=== PATIENT | female | born 1975 | race Caucasian/White ===

== ENCOUNTER 2018-06-01 19:54 | Emergency (ER) | payer MEDICAID ==
[~2018-06-01] VITALS: Ht 162.6 cm; Wt 57.6 kg
[~2018-06-01 19:54] MED LIST: AMOXICILLIN500 M1 OR; ANTIVERT25 MG OR; BACTRIM DS1 TAB OR; BUSPAR5 MG PO; CELEXA20 MG PO; CELEXA40 MG PO; CEPHALEXIN500 MG OR; CIPROFLOXACN500 MG PO; COMBIVENT IN; FLEXERIL OR; FLEXERIL10 MG PO; LORTAB 5 OR; LORTAB 7.5 OR; MEDDOSEPAK OR; MEGACE40 MG OR; NAPROSYN500 MG OR; NAPROSYN500 MG PO; PENICILLN VK500 MG OR; PERCOCET 5/325M1 TAB OR; REGLAN10 MG OR; SEROQUEL25 MG OR; SEROQUEL50 MG OR; TRAMADOL HCL50 MG OR; TRAZODONE100 MG OR; TRAZODONE50 MG PO; ULTRAM50 MG OR
[2018-06-01] MEDS ORDERED: TRAZODONE50 MG PO (20:16)
[2018-06-01] MEDS ORDERED: CELEXA40 M1 PO (20:16)
[2018-06-01] MEDS ORDERED: BUSPAR5 MG PO (20:16)
[2018-06-01 20:45] VITALS: BP 126/79
[2018-06-01] MEDS ORDERED: AMOXICILLIN875 MG PO (21:30)
[2018-06-01] MEDS ORDERED: BENADRYL 50MG C50 MG PO (21:30)
== END 2018-06-01 22:15 | disposition home or self-care (01) ==
LOC: ED 19:54
DX: S71.151A Open bite, right thigh, initial encounter (principal); L03.115 Cellulitis of right lower limb; T78.40XA Allergy, unspecified, initial encounter; J45.909 Unspecified asthma, uncomplicated; F41.9 Anxiety disorder, unspecified; F17.210 Nicotine dependence, cigarettes, uncomplicated; W54.0XXA Bitten by dog, initial encounter; Y93.55 Activity, bike riding; Y92.410 Unspecified street and highway as the place of occurrence of the external cause

== ENCOUNTER 2018-06-26 21:24 | Emergency (ER) | payer MEDICAID ==
[~2018-06-26] VITALS: Ht 158.8 cm; Wt 56.6 kg
[~2018-06-26 21:24] MED LIST changes: +AMOXICILLIN875 MG PO; +BENADRYL 50MG C50 MG PO; +CELEXA40 M1 PO
[2018-06-26] MEDS ORDERED: AUGMENTIN875TAB PO (22:16)
[2018-06-26 22:55] VITALS: BP 108/88
== END 2018-06-26 22:55 | disposition home or self-care (01) ==
LOC: ED 21:24
DX: S71.152A Open bite, left thigh, initial encounter (principal); J45.909 Unspecified asthma, uncomplicated; F41.9 Anxiety disorder, unspecified; F17.210 Nicotine dependence, cigarettes, uncomplicated; L08.9 Local infection of the skin and subcutaneous tissue, unspecified; W54.0XXA Bitten by dog, initial encounter; Y92.410 Unspecified street and highway as the place of occurrence of the external cause

== ENCOUNTER 2019-07-21 09:50 | Emergency (ER) | payer MEDICAID ==
[~2019-07-21] VITALS: Ht 158.8 cm; Wt 62.0 kg
[~2019-07-21 09:50] MED LIST changes: +AUGMENTIN875TAB PO
[2019-07-21] MEDS ORDERED: HYDROCO/APAP1 TA9 PO (11:56)
[2019-07-21] MEDS ORDERED: MOTRIN400 MG PO (11:56)
[2019-07-21 16:34] VITALS: BP 135/85
== END 2019-07-21 16:34 | disposition home or self-care (01) ==
LOC: ED 09:50
DX: S52.502A Unspecified fracture of the lower end of left radius, initial encounter for closed fracture (principal); M89.8X3 Other specified disorders of bone, forearm; F17.200 Nicotine dependence, unspecified, uncomplicated; V18.0XXA Pedal cycle driver injured in noncollision transport accident in nontraffic accident, initial encounter; Y93.55 Activity, bike riding; Y92.009 Unspecified place in unspecified non-institutional (private) residence as the place of occurrence of the external cause

== ENCOUNTER 2019-07-24 04:36 | Emergency (ER) | payer MEDICAID ==
[~2019-07-24] VITALS: Ht 158.8 cm; Wt 60.0 kg
[~2019-07-24 04:36] MED LIST changes: +HYDROCO/APAP1 TA9 PO; +MOTRIN400 MG PO
[2019-07-24 06:25] VITALS: BP 132/98
== END 2019-07-24 06:25 | disposition home or self-care (01) ==
LOC: ED 04:36
DX: S52.502D Unspecified fracture of the lower end of left radius, subsequent encounter for closed fracture with routine healing (principal); M25.532 Pain in left wrist

== ENCOUNTER 2019-08-08 20:15 | Emergency (ER) | payer MEDICAID ==
[~2019-08-08] VITALS: Ht 158.8 cm; Wt 57.4 kg
[2019-08-08] MEDS ORDERED: LORTAB 1010 MG PO (21:29)
[2019-08-08 23:55] VITALS: BP 119/67
== END 2019-08-08 23:55 | disposition home or self-care (01) ==
LOC: ED 20:15
DX: S52.502A Unspecified fracture of the lower end of left radius, initial encounter for closed fracture (principal); S52.612A Displaced fracture of left ulna styloid process, initial encounter for closed fracture; F17.200 Nicotine dependence, unspecified, uncomplicated; W22.8XXA Striking against or struck by other objects, initial encounter; Y92.003 Bedroom of unspecified non-institutional (private) residence as the place of occurrence of the external cause

== ENCOUNTER 2020-08-13 19:54 | Emergency (ER) | payer SELFPAY ==
[~2020-08-13] VITALS: Ht 158.8 cm; Wt 59.0 kg
[~2020-08-13 19:54] MED LIST changes: +LORTAB 1010 MG PO
[2020-08-13 20:34] LABS: URINE BLOOD DIPSTICK NEGATIVE (NEGATIVE); URINE COLOR YELLOW; URINE GLUCOSE - DIPSTICK NEGATIVE (NEGATIVE); URINE KETONE NEGATIVE (NEGATIVE); URINE LEUK ESTERASE NEGATIVE (NEGATIVE); URINE PH 5.5 (4.5-8.0); URINE PROTEIN - DIPSTICK NEGATIVE (NEG-TRACE); URINE SPECIFIC GRAVITY >=1.030; URINE UROBILINOGEN - DIPSTICK 0.2 E.U./dL (0.2)
[2020-08-13 20:35] LABS: URINE BILIRUBIN - DIPSTICK NEGATIVE (NEGATIVE); URINE NITRITE - DIPSTICK POSITIVE (Negative)
[2020-08-13 20:44] LABS: URINE BACTERIA MODERATE hpf; URINE RBC 0-2 RBC/hpf (0-5); URINE SQUAMOUS EPITHELIAL CELL FEW EPI/hpf (0-FEW)
[2020-08-13 20:53] LABS: HEMATOCRIT 38.9 % (37.0-47.0); HEMOGLOBIN 12.5 g/dl (12.0-16.0); IMMATURE GRANULOCYTES 0.1 % (0.0-5.0); MEAN CELL VOLUME 93.5 fL CALC (80.0-100.0); MEAN CORPUSCULAR HGB CONC 32.1 g/dL CAL (32.0-36.0); NEUT# 3.06 thou/uL (2.00-7.15); RED BLOOD COUNT 4.16 mill/uL (4.20-5.60); RED CELL DISTRI WIDTH 12.5 % (11.5-15.5)
[2020-08-13 21:11] LABS: ALBUMIN 4.1 g/dL (3.2-5.0); ALKALINE PHOSPHATASE 84 u/l (38-126); AMYLASE 48 u/l (30-110); BILIRUBIN, TOTAL 0.3 mg/dL (0.0-1.4); BUN 10 mg/dL (7-17); BUN/CREATININE RATIO 13 (12-20 (CALC)); CHLORIDE 101 mmol/l (95-108); CREATININE 0.8 mg/dL (0.5-1.0); GFR > 60 ML/MIN (>=60 (CALC)); GFR FOR AFR.AMER. > 60 ML/MIN (>=60 (CALC)); LIPASE 61 u/l (23-300); SGOT/AST 46 u/l (14-36); TOTAL PROTEIN 7.7 g/dL (6.3-8.2)
[2020-08-13 21:16] LABS: ANION GAP 11 (6-22 (CALC)); CARBON DIOXIDE 30 mmol/l (22-30); POTASSIUM 4.6 mmol/l (3.5-5.1); SODIUM 137 mmol/l (137-146)
[2020-08-13] MEDS ORDERED: NAPROXEN500 MG PO (22:58)
[2020-08-13] MEDS ORDERED: KEFLEX500 M1 PO (22:58)
[2020-08-13 23:00] VITALS: BP 126/80
== END 2020-08-13 23:08 | disposition home or self-care (01) | DRG 690 ==
LOC: ED 19:54
PROVIDERS: Emergency Medicine
DX: N39.0 Urinary tract infection, site not specified (principal); I10 Essential (primary) hypertension; F17.210 Nicotine dependence, cigarettes, uncomplicated

== ENCOUNTER 2020-12-11 20:52 | Emergency (ER) | payer MEDICAID ==
[~2020-12-11] VITALS: Ht 160 cm; Wt 60.5 kg
[~2020-12-11 20:52] MED LIST changes: +KEFLEX500 M1 PO; +NAPROXEN500 MG PO
[2020-12-11] MEDS ORDERED: BACTRIM DS1 TAB PO (23:07)
[2020-12-11] MEDS ORDERED: KEFLEX500 M1 PO (23:07)
[2020-12-11] MEDS ORDERED: LORTAB 1010 MG PO (23:07)
[2020-12-11 23:35] VITALS: BP 142/80
== END 2020-12-11 23:35 | disposition home or self-care (01) ==
LOC: ED 20:52
DX: L02.612 Cutaneous abscess of left foot (principal); I10 Essential (primary) hypertension; J45.909 Unspecified asthma, uncomplicated; F41.9 Anxiety disorder, unspecified; F17.210 Nicotine dependence, cigarettes, uncomplicated

== ENCOUNTER 2021-07-19 08:50 | Emergency (ER) | payer MEDICAID ==
[~2021-07-19] VITALS: Ht 160 cm; Wt 70.0 kg
[~2021-07-19 08:50] MED LIST changes: +BACTRIM DS1 TAB PO
[2021-07-19 09:27] VITALS: BP 158/79
== END 2021-07-19 09:26 | disposition left against medical advice (07) ==
LOC: ED 08:50
DX: F41.9 Anxiety disorder, unspecified (principal); I10 Essential (primary) hypertension; J45.909 Unspecified asthma, uncomplicated; F17.200 Nicotine dependence, unspecified, uncomplicated; Z91.19 Patient's noncompliance with other medical treatment and regimen

== ENCOUNTER 2023-06-04 00:20 | Emergency (ER) | payer MEDICAID ==
[~2023-06-04] VITALS: Ht 160 cm; Wt 69.0 kg
[2023-06-04] MEDS ORDERED: KEFLEX500 MG PO (00:32)
[2023-06-04 00:53] VITALS: BP 141/78
== END 2023-06-04 01:12 | disposition home or self-care (01) ==
LOC: ED 00:20
DX: L01.00 Impetigo, unspecified (principal); I10 Essential (primary) hypertension; J45.909 Unspecified asthma, uncomplicated; F41.9 Anxiety disorder, unspecified; F17.200 Nicotine dependence, unspecified, uncomplicated

== ENCOUNTER 2024-06-27 00:05 | Emergency (ER) | payer OTHER, MEDICAID ==
[~2024-06-27] VITALS: Ht 160 cm; Wt 58.0 kg
[~2024-06-27 00:05] MED LIST changes: +KEFLEX500 MG PO
[2024-06-27] MEDS ORDERED: ASPIRIN 81 MG/TAB PO ONE (00:15)
[2024-06-27] MEDS ORDERED: KETOROLAC TROMETHAMINE 30 MG/ML SDV IV ONE (00:15)
[2024-06-27 00:30] VITALS: BP 117/88
[2024-06-27 00:46] VITALS: BP 123/81
[2024-06-27 01:00] VITALS: BP 119/83
[2024-06-27 01:57] LABS: BASO% 0.3 % (0-3); EOS% 1.5 % (0-8); HEMATOCRIT 38.5 % (37.0-47.0); HEMOGLOBIN 12.8 g/dl (12.0-16.0); IMMATURE GRANULOCYTES 0.3 % (0.0-5.0); LYMPH% 21.6 % (15-41); MEAN CELL VOLUME 92.5 fL CALC (80.0-100.0); MEAN CORPUSCULAR HGB 30.8 pG CALC (26.0-32.0); MEAN CORPUSCULAR HGB CONC 33.2 g/dL CAL (32.0-36.0); MONO% 6.2 % (2-13); NEUT# 5.19 thou/uL (2.00-7.15); NEUT% 70.1 % (42-76); RED BLOOD COUNT 4.16 mill/uL (4.20-5.60); RED CELL DISTRI WIDTH 12.4 % (11.5-15.5)
[2024-06-27 02:02] LABS: CREATININE 0.9 mg/dL (0.5-1.0); POTASSIUM 4.3 mmol/l (3.5-5.1); TOTAL PROTEIN 7.4 g/dL (6.3-8.2)
[2024-06-27 02:03] LABS: BILIRUBIN, TOTAL 0.5 mg/dL (0.02-1.3)
[2024-06-27] MEDS ORDERED: TORADOL PO (02:26)
[2024-06-27 02:33] VITALS: BP 119/83
== END 2024-06-27 02:33 | disposition home or self-care (01) | DRG 206 ==
LOC: ED 00:05
PROVIDERS: Family Medicine
DX: M94.0 Chondrocostal junction syndrome [Tietze] (principal); F41.9 Anxiety disorder, unspecified; F15.10 Other stimulant abuse, uncomplicated; I10 Essential (primary) hypertension; J45.909 Unspecified asthma, uncomplicated; F17.200 Nicotine dependence, unspecified, uncomplicated